=== PATIENT | female | born 2000 | race Hispanic/Latino ===

== ENCOUNTER 2023-08-29 18:02 | Emergency (ER) | payer SELFPAY ==
[2023-08-29] MEDS ORDERED: Rabies Vaccine Human 2.5 UNITS VIAL ONE (19:39)
[2023-08-29] MEDS ORDERED: Boostrix 0.5 ML (Tdap) VIAL (>/=7 yrs of age) ONE (19:39)
[2023-08-29] MEDS ORDERED: Rabies Immune Globulin/PF 300 UNITS/ML VIAL ONE (19:39)
[2023-08-29] MEDS ORDERED: Bacitracin 1 PK ONE (19:52)
[2023-08-29] MEDS ORDERED: Amoxicillin/Potassium Clav 250 MG TAB ONE (20:11)
[2023-08-29] MEDS ORDERED: Amoxicillin/Potassium Clav 875 MG TAB ONE (20:12)
== END 2023-08-29 21:47 | disposition home or self-care (01) ==
LOC: ERS 18:02
DX: S61.452A Open bite of left hand, initial encounter (principal); Z23 Encounter for immunization; W55.01XA Bitten by cat, initial encounter
CPT/HCPCS: 90375; 90471; 90472; 90675; 90715; 96372

== ENCOUNTER 2023-09-01 17:13 | Day surgery (SDC) | payer SELFPAY ==
[2023-09-01] MEDS ORDERED: Rabies Vaccine Human 2.5 UNITS VIAL ONE (20:00)
== END 2023-09-01 20:16 | disposition home or self-care (01) ==
LOC: ER/OP 17:13
PROVIDERS: ATTEND Physician Assistant
DX: Z23 Encounter for immunization (principal)
CPT/HCPCS: 90675

== ENCOUNTER → 2023-09-04 | Day surgery (SDC) | payer SELFPAY ==
[~2023-09-04] MED LIST: Rabies Vaccine Human 2.5 UNITS VIAL ONE
== END ==
LOC: ER/OP 17:12
PROVIDERS: ATTEND Radiology Vascular & Interventional Radiology
DX: Z23 Encounter for immunization (principal)
CPT/HCPCS: 90675